=== PATIENT | male | born 1950 | race Caucasian/White ===

== ENCOUNTER 2020-11-06 09:53 | Day surgery (SDC) | payer OTHER, MEDICARE ==
[2020-10-30 17:58] VITALS: BMI 24.6
[2020-11-06] MEDS ORDERED: MIDAZOLAM HCL 2 MG/2 ML SINGLE DOSE VIAL ONE (11:03)
[2020-11-06] MEDS ORDERED: PROPOFOL 20 ML ONE ×2 (11:16)
[2020-11-06] MEDS ORDERED: BUPIVACAINE HCL/PF 0.25% (2.5MG/ML) 10 ML VIAL ONE (11:32)
[2020-11-06] MEDS ORDERED: GUM MASTIC/STORAX/MSAL/ALCOHOL 1 DRP DROPSBTL MC ONE (11:36)
[2020-11-06 14:17] VITALS: PULSE 50; TEMP 97.5
[2020-11-06 14:46] VITALS: BP 128/69
== END 2020-11-06 14:00 | disposition home or self-care (01) ==
LOC: FASU 09:53
PROVIDERS: ATTEND Orthopaedic Surgery Hand Surgery
PROC: 01N54ZZ Release Median Nerve, Percutaneous Endoscopic Approach (ICD-10-PCS; principal; 2020-11-06 11:28)
DX: G56.01 Carpal tunnel syndrome, right upper limb (principal)
CPT/HCPCS: 94760